=== PATIENT | female | born 1995 | race American Indian/Alaskan Native ===

== ENCOUNTER 2018-10-23 01:22 | Emergency (ER) | payer OTHER ==
[2018-10-23] MEDS ORDERED: SOLU-Medrol ONE (01:32)
[2018-10-23] MEDS ORDERED: BENADRYL IV ONE (01:32)
[2018-10-23] MEDS ORDERED: PEPCID IV ONE ×2 (01:32→01:33)
[2018-10-23] MEDS ORDERED: SOLU-Medrol IV ONE (01:32)
[2018-10-23] MEDS ORDERED: XOPENEX IH ONE (01:43)
[2018-10-23] MEDS ORDERED: ATROVENT IH ONE (01:43)
--- NOTE | 2018-10-23 01:43 | Emergency Department Report ---
HPI - General Chief Complaint: Allergic Reaction Time Seen by Provider: 10/23/18 01:32 - HPI HPI: Room 7 The patient is a 23-year-old female presenting with a chief complaint of allergic reaction. Patient states approximately 30 minutes prior to arrival she is in the bathroom she felt as though something bit her on her buttocks. The patient states she then developed itching on her buttocks then her entire body began to itch. Patient states short of breath she took an injection of her EpiPen and came to the ED. The patient states she has an EpiPen because she has known allergies to bug bites Location: [See above] Duration: [See above] Quality: Itching Severity: Moderate Modifying factors: [see above] Context: [see above] Mode of transportation: [not driving] ED Past Medical Hx - Past Medical History Previous Medical History?: No - Surgical History Past Surgical History?: No - Family History Family history: no significant - Social History Substance Use Type: None (denies illicit drug use), Alcohol (rarely) - Medications Home Medications: Home Medications Medication Instructions Recorded Confirmed Last Taken Type EPINEPHrine [Epipen 2-Armen] 0.3 mg IM ONCE PRN #0.6 mg 10/23/18 Unknown Rx Famotidine [Pepcid] 20 mg PO BID #6 tablet 10/23/18 Unknown Rx Prednisone [predniSONE 10 mg 10 mg PO .TAPER #1 tab.ds.pk 10/23/18 Unknown Rx (6-Day Pack, 21 Tabs)] diphenhydrAMINE [Benadryl CAP] 50 mg PO Q6HR #24 capsule 10/23/18 Unknown Rx ED Review of Systems ROS: Stated complaint: ALLERGIC REACTION Other details as noted in HPI Constitutional: no symptoms reported Eyes: denies: eye pain ENT: denies: throat pain Respiratory: shortness of breath Cardiovascular: denies: chest pain Endocrine: no symptoms reported Gastrointestinal: denies: abdominal pain Genitourinary: denies: dysuria Musculoskeletal: denies: back pain Skin: rash, pruritus Neurological: denies: headache Physical Exam - Physical Exam Vital Signs: Vital Signs 10/23/18 01:25 Temperature 98.3 F Pulse Rate 136 H Respiratory 18 Rate Blood Pressure 117/69 O2 Sat by Pulse 96 Oximetry Physical Exam: GENERAL: The patient is well-developed well-nourished female lying on stretcher not appearing to be in acute distress. [] HEENT: Normocephalic. Atraumatic. Extraocular motions are intact. Patient has moist mucous membranes. Oropharynx clear. Uvula midline NECK: Supple. Trachea midline. No stridor CHEST/LUNGS: Diminished breath sounds possibly secondary to poor effort. There is no respiratory distress noted. HEART/CARDIOVASCULAR: Regular. There is tachycardia. There is no gallop rub or murmur. ABDOMEN: Abdomen is soft, nontender. Patient has normal bowel sounds. There is no abdominal distention. SKIN: There is an urticarial rash present over the face. There is no diaphoresis. NEURO: The patient is awake, alert, and oriented. The patient is cooperative. The patient has no focal neurologic deficits. The patient has normal speech MUSCULOSKELETAL: There is no evidence of acute injury. ED Course Vital Signs 10/23/18 01:25 Temperature 98.3 F Pulse Rate 136 H Respiratory 18 Rate Blood Pressure 117/69 O2 Sat by Pulse 96 Oximetry ED Medical Decision Making - Lab Data Result diagrams: 10/23/18 01:40 10/23/18 01:40 Laboratory Tests 10/23/18 10/23/18 10/23/18 01:40 01:40 01:40 WBC 8.2 RBC 4.80 Hgb 14.4 H Hct 43.5 H MCV 91 MCH 30 MCHC 33 RDW 12.4 L Plt Count 201 Lymph % (Auto) 54.7 H [place] % (Auto) 7.6 H Eos % (Auto) 1.3 Baso % (Auto) 0.3 Lymph # 4.5 [place] # 0.6 Eos # 0.1 Baso # 0.0 Seg Neutrophils % 36.1 L Seg Neutrophils # 2.9 Sodium 140 Potassium 3.3 L Chloride 103.1 Carbon Dioxide 21 L Anion Gap 19 BUN 14 Creatinine 1.1 Estimated GFR > 60 BUN/Creatinine Ratio 13 Glucose 118 H Calcium 9.2 HCG, Qual Negative - EKG Data -: EKG Interpreted by Me EKG shows normal: sinus rhythm Rate: normal (91 bpm) - EKG Data When compared to previous EKG there are: previous EKG unavailable Interpretation: other (no ischemic changes seen) - Radiology Data Radiology results: report reviewed (lateral soft tissue neck x-ray, chest x- ray), image reviewed (lateral soft tissue neck x-ray, chest x-ray) interpreted by me: Lateral soft tissue neck x-ray-no prevertebral swelling. Airway patent Chest x-ray-no focal infiltrates, no pneumothorax [address] [address] XRay Report Signed Patient: DEMI HA MR#: [id number] : 1995 Acct:[id number] Age/Sex: 23 / F ADM Date: 10/23/18 Loc: ED Attending Dr: Ordering Physician: EDDIE GILBERT MD Date of Service: 10/23/18 Procedure(s): XR neck soft tissue Accession Number(s): [id number] cc: EDDIE GILBERT MD Fluoro Time In Minutes: PROCEDURE: XR NECK SOFT TISSUE TECHNIQUE: Soft tissue neck radiographs, 2 views, including AP and lateral. HISTORY: shortness of breath, allergic reaction COMPARISONS: None . FINDINGS: Bone mineralization: Normal . Alignment: Normal . Soft tissues: Epiglottis and hypopharyngeal soft tissues normal . Foreign bodies: None . IMPRESSION: Normal Examination . This document is electronically signed by Lyndsey Mancilla DO., Oct 23 2018 03:52:40 AM ET Transcribed By: [facility] Dictated By: LYNDSEY MANCILLA MD Electronically Authenticated By: LYNDSEY MANCILLA MD Signed Date/Time: 10/23/18353 DD/ 2 TD/TT: 10/23/[address] [address] XRay Report Signed Patient: DEMI HA MR#: [id number] : 1995 Acct:[id number] Age/Sex: 23 / F ADM Date: 10/23/18 Loc: ED Attending Dr: Ordering Physician: EDDIE GILBERT MD Date of Service: 10/23/18 Procedure(s): XR chest routine 2V Accession Number(s): [id number] cc: EDDIE GILBERT MD Fluoro Time In Minutes: PROCEDURE: XR CHEST ROUTINE 2V TECHNIQUE: PA and lateral chest radiographs were obtained. HISTORY: shortness of breath, allergic reaction COMPARISONS: None. FINDINGS: Heart: Normal. Mediastinum/Vessels: Normal. Lungs/Pleural space: Normal. Bony thorax: No acute osseous abnormality. IMPRESSION: Normal examination. This document is electronically signed by Lyndsey Mancilla DO., Oct 23 2018 03:51:43 AM ET Transcribed By: [facility] Dictated By: LYNDSEY MANCILLA MD Electronically Authenticated By: LYNDSEY MANCILLA MD Signed Date/Time: 10/23/18 0353 DD/ TD/TT: 10/23/18341 - Differential Diagnosis acute allergic reaction Critical care attestation.: If time is entered above; I have spent that time in minutes in the direct care of this critically ill patient, excluding procedure time. ED Disposition Clinical Impression: Acute allergic reaction Disposition: DC-01 TO HOME OR SELFCARE Is pt being admited?: No Does the pt Need Aspirin: No Condition: Stable Instructions: Anaphylaxis (ED), Urticaria (ED) Additional Instructions: Return to the emergency department immediately should you develop worsening symptoms, fever, inability to tolerate food or liquid or any other concerns. Prescriptions: diphenhydrAMINE [Benadryl CAP] 50 mg PO Q6HR #24 capsule EPINEPHrine [Epipen 2-Armen] 0.3 mg IM ONCE PRN #0.6 mg PRN Reason: Shortness Of Breath Famotidine [Pepcid] 20 mg PO BID #6 tablet Prednisone [predniSONE 10 mg (6-Day Pack, 21 Tabs)] 10 mg PO .TAPER #1 tab.ds.pk Referrals: [facility] MD DAVE [Primary Care Provider] - 3-5 Days FELICIANO SHIPMAN MD [Staff Physician] - 3-5 Days (Dr Shipman as an supply chain tech. Please follow up with her for further evaluation) Time of Disposition: 04:05
[2018-10-23 02:23] LABS: Basophils % (Auto) 0.3 % (0.0-1.8); Eosinophils # (Auto) 0.1 K/mm3 (0.0-0.4); Eosinophils % (Auto) 1.3 % (0.0-4.3); Hematocrit 43.5 % (30.3-42.9); Hemoglobin 14.4 gm/dl (10.1-14.3); Lymphocytes # (Auto) 4.5 K/mm3 (1.2-5.4); Lymphocytes % (Auto) 54.7 % (13.4-35.0); Mean Corpuscular HGB Conc 33 % (30-34); Mean Corpuscular Volume 91 fl (79-97); Monocytes # (Auto) 0.6 K/mm3 (0.0-0.8); Monocytes % (Auto) 7.6 % (0.0-7.3); Platelet Count 201 K/mm3 (140-440); Red Cell Distribution Width 12.4 % (13.2-15.2)
[2018-10-23 02:43] LABS: BUN/Creatinine Ratio 13; Blood Urea Nitrogen 14 mg/dL (7-17); Calcium 9.2 mg/dL (8.4-10.2); Hemolysis Index 9
--- NOTE | 2018-10-23 03:53 | XRay Report ---
PROCEDURE: XR CHEST ROUTINE 2V TECHNIQUE: PA and lateral chest radiographs were obtained. HISTORY: shortness of breath, allergic reaction COMPARISONS: None. FINDINGS: Heart: Normal. Mediastinum/Vessels: Normal. Lungs/Pleural space: Normal. Bony thorax: No acute osseous abnormality. IMPRESSION: Normal examination. This document is electronically signed by Lyndsey Mancilla DO., Oct 23 2018 03:51:43 AM ET
--- NOTE | 2018-10-23 03:54 | XRay Report ---
PROCEDURE: XR NECK SOFT TISSUE TECHNIQUE: Soft tissue neck radiographs, 2 views, including AP and lateral. HISTORY: shortness of breath, allergic reaction COMPARISONS: None . FINDINGS: Bone mineralization: Normal . Alignment: Normal . Soft tissues: Epiglottis and hypopharyngeal soft tissues normal . Foreign bodies: None . IMPRESSION: Normal Examination . This document is electronically signed by Lyndsey Mancilla DO., Oct 23 2018 03:52:40 AM ET
[2018-10-23 04:15] VITALS: BP 117/65
== END 2018-10-23 04:33 | disposition home or self-care (01) ==
LOC: ED 01:22
DX: T78.40XA Allergy, unspecified, initial encounter (principal); X58.XXXA Exposure to other specified factors, initial encounter; R06.02 Shortness of breath
CPT/HCPCS: 36415; 70360; 71046; 80048; 84703; 85025; 93005; 93010; 94640; 96374; 96375; 99284; J1200; J2930